=== PATIENT | female | born 1935 | race Caucasian/White ===

== ENCOUNTER 2018-04-29 00:20 | Emergency (ER) | payer OTHER ==
[~2018-04-29] VITALS: Ht 157.5 cm; Wt 68.0 kg
[~2018-04-29 00:20] MED LIST: CETIRIZINE HCL10 MG; CIPRO500 MG; FOSAMAX70 MG/75 M; GEMFIBROZIL600 MG; LEVOTHROID25 MCG; SIMVASTATIN40 MG; TRAMADOL HCL-AP1 TAB; XANAX2 MG
[2018-04-29] MEDS ORDERED: COZAAR100 MG (00:35)
[2018-04-29] MEDS ORDERED: ARICEPT5 MG PO (04:45)
== END 2018-04-29 04:51 | disposition home or self-care (01) ==
LOC: ER 00:20
DX: R41.0 Disorientation, unspecified (principal); I10 Essential (primary) hypertension

== ENCOUNTER 2018-08-06 06:46 | Emergency (ER) | payer OTHER ==
[~2018-08-06] VITALS: Ht 152.4 cm; Wt 88.5 kg
[~2018-08-06 06:46] MED LIST changes: +ARICEPT5 MG PO; +COZAAR100 MG
== END 2018-08-06 13:15 | disposition home or self-care (01) ==
LOC: ER 06:46
DX: R41.82 Altered mental status, unspecified (principal); R11.2 Nausea with vomiting, unspecified; I16.0 Hypertensive urgency; I10 Essential (primary) hypertension; Z74.01 Bed confinement status